=== PATIENT | female | born 1985 | race Caucasian/White ===

== ENCOUNTER 2018-12-15 01:04 | Emergency (ER) | payer OTHER, SELFPAY ==
[2018-12-15 01:05] VITALS: BP 164/109; PULSE 120; RESP 18; TEMP 36.3; O2SAT 96; BMI 49.4
[2018-12-15] MEDS: OLANZapine ODT 10 MG TAB PO (01:38)
[2018-12-15 01:41] LABS: Pregnancy Test Urine Negative (Negative)
[2018-12-15 01:42] LABS: Appearance Urine UA CLEAR; Bilirubin Urine UA NEGATIVE (NEGATIVE); Color Urine UA YELLOW; Glucose Urine UA NEGATIVE (Negative); Ketones Urine UA NEGATIVE (NEGATIVE); Leukocyte Esterase Urine UA TRACE (NEGATIVE); Nitrite Urine UA NEGATIVE (Negative); Occult Blood Urine UA NEGATIVE (Negative); Protein Urine UA NEGATIVE (Negative); Urobilinogen Urine UA 0.2 E.U./dL (0.2); pH Urine UA 5.5 (4.5-8.0)
[2018-12-15 01:46] LABS: RBC Urine None Seen (0-5/HPF); Urine Amphetamines Negative (Negative); Urine Barbiturates Negative (Negative); Urine Benzodiazepines Positive (Negative); Urine Cocaine Negative (Negative); Urine MDMA Negative (Negative); Urine Methadone Negative (Negative); Urine Methamphetamines Negative (Negative); Urine Morphine/Opi cutoff 2000 Negative (Negative); Urine Oxycodone Negative (Negative); Urine Phencyclidine Negative (Negative); Urine Tetrahydrocannabinol Negative (Negative); Urine Tricyclic Antidepressant Positive (Negative)
[2018-12-15 01:48] LABS: Bacteria Urine Moderate (10-30); Culture Indicated Urine Cult Not Indicated; Squamous Epithelial Cell Urine 5-10 /HPF (0-5/HPF); WBC Urine 1-5/HPF (0-5/HPF)
[2018-12-15 01:52] LABS: Add Manual Diff / Slide Review NO; Basophils Absolute Auto 100 /uL (0-100); Basophils Percent Auto 0.9 % (0-2); Eosinophils Absolute Auto 200 /uL (0-450); Eosinophils Percent Auto 2.6 % (2-4); Hematocrit 41.5 % (36-46); Hemoglobin 14.2 g/dL (12.0-16.0); Lymphocytes Absolute Auto 3100 /uL (1100-4500); Lymphocytes Percent Auto 39.9 % (25-40); Mean Corpuscular HGB Conc 34.3 % (30-36); Mean Corpuscular Hemoglobin 30.1 PG (26-34); Mean Corpuscular Volume 87.8 fL (80-100); Monocytes Absolute Auto 800 /uL (0-900); Neutrophils Absolute Auto 3700 /uL (1500-7000); Neutrophils Percent Auto 46.6 % (50-75); Platelet Count 341 X10^3/uL (150-400); Red Blood Cell Count 4.73 X10^6/uL (4.0-5.2); White Blood Cell Count 7.9 X10^3/uL (4.5-11.0)
--- NOTE | 2018-12-15 01:57 | ED.PSYCH ---
HPI - Psych General Chief Complaint: Psychiatric Symptoms Stated Complaint: Suicidal Ideation Time Seen by Provider: 12/15/18 01:05 Source: patient and police Mode of arrival: ambulatory Limitations: no limitations History of Present Illness HPI Narrative: 33-year-old female with extensive mental health history presents by [place] police for evaluation of homicidal and suicidal ideation. She was discharged earlier in the day after a 9 day stay at [facility] under voluntary circumstances. The patient has been admitted 9 times for psychiatric reasons. She frequently has voices which tell her she is worthless and she should hurt herself. Of larger concern to her is that the voices tell her to kill all of the teachers at a local elementary school because they train young students to track down patients like her. Her theory is that if she kills the teachers stable not be able to train students to seek her out. The patient denies any access to a firearm. She states that she would definitely hurt herself if she were allowed to go home. Her underlying diagnosis is severe major depression with psychosis. This evening the patient states she started having strong suicidal and homicidal thoughts and called the various help pot lines and was eventually routed to dispatch whom notified police and brought her here. complaint: suicidal ideation Onset (ago): day(s) Duration: constant History of same: Yes Relieving factors: none Exacerbating factors: none Associated psychiatric symptoms: suicidal ideation, homicidal ideation, auditory hallucinations and visual hallucinations Associated symptoms: denies other symptoms Treatments prior to arrival: none If self harm: admits thoughts of self harm Related Data Home Medications Medication Instructions Recorded Confirmed albuterol sulfate [Ventolin HFA] 2 puff INH PRN #0 01/14/12 12/03/18 montelukast [Singulair] 10 mg PO QDAY #0 01/14/12 12/03/18 EPINEPHRINE (#EPI EZ PEN) 1 mg IM PRN #0 09/11/12 12/03/18 amitriptyline 25 mg PO HS #0 02/26/17 12/03/18 naproxen sodium [Aleve] 220 mg PO PRN PRN #0 02/26/17 12/03/18 propranolol 40 mg PO TID #0 02/26/17 12/03/18 ranitidine HCl 150 mg PO BID #0 02/26/17 12/03/18 levothyroxine 112 mcg capsule 112 mcg PO BID cap 05/28/18 12/03/18 alprazolam 1 mg tablet 1 mg PO TID PRN tab 07/26/18 12/03/18 Previous Rx's Medication Instructions Recorded prazosin 5 mg capsule 15 mg PO HS 30 Days #90 cap 01/22/18 alprazolam ER 3 mg tablet,extended 3 mg PO DAILY #30 tab 09/27/18 release 24 hr duloxetine 60 mg capsule,delayed 120 mg PO Q DAY #60 cap 09/27/18 release haloperidol 10 mg tablet 10 mg PO .COMPLEX #90 tab 09/27/18 lisdexamfetamine 70 mg capsule 70 mg PO QAM #30 cap 11/03/18 Allergies Allergy/AdvReac Type Severity Reaction Status Date / Time Penicillins [PENICILLINS] Allergy Severe Severe Verified 12/15/18 01:48 Joint Pain venom-honey bee Allergy Severe Anahalaxis Verified 12/15/18 01:48 [BEE VENOM (HONEY BEE)] hydrocodone [HYDROCODONE] Allergy Unknown Verified 12/15/18 01:48 Sulfa (Sulfonamide AdvReac Intermediate N/V Verified 12/15/18 01:48 Antibiotics) [SULFA (SULFONAMIDE ANTIBIOTICS)] Review of Systems Constitutional Denies chills, Denies fever(s), Denies lethargy and Denies weakness Eyes Denies change in vision, Denies eye discharge, Denies irritation and Denies loss of vision ENT Ears, Nose, Mouth, and Throat: Denies change in voice, Denies neck pain and Denies sore throat Cardiovascular Denies chest pain, Denies irregular heart rhythm, Denies lightheadedness, Denies palpitations, Denies dyspnea, Denies dyspnea on exertion and Denies orthopnea Respiratory Denies cough, Denies dyspnea, Denies dyspnea on exertion and Denies wheezing Gastrointestinal Gastrointestinal: Denies abdominal pain, Denies change in bowel habits, Denies diarrhea, Denies nausea and Denies vomiting Genitourinary Denies hematuria, Denies flank pain, Denies urinary incontinence and Denies urinary urgency Musculoskeletal Denies neck pain Integumentary/Breasts Denies pruritus, Denies erythema, Denies rash and Denies wounds Neurologic Denies confusion, Denies loss of vision and Denies weakness Psychiatric Denies anxiety, Denies confusion, Denies depression, Reports homicidal ideation and Reports suicidal ideation Endocrine Denies palpitations Hematologic/Lymphatic Denies easy bruising Allergic/Immunologic Denies wheezing PFSH Surgical History Status post cholecystectomy Family History (Updated 03/12/15 @ 00:00 by Conversion Provider) Father Age: 67 FH: prostate cancer Grandfather Heart disease Hypertension Stroke Grandmother Heart disease Hypertension Stroke Grandfather Alzheimer disease Social History Smoking Status: Never smoker Family History Father Age: 67 FH: prostate cancer Grandfather Heart disease Hypertension Stroke Grandmother Heart disease Hypertension Stroke Grandfather Alzheimer disease Social History Smoking Status: Never smoker Exam Initial Vital Signs Initial Vital Signs: Vital Signs Temperature 97.3 F L 12/15/18 01:05 Pulse Rate 120 H 12/15/18 01:05 Respiratory Rate 18 12/15/18 01:05 Blood Pressure 164/109 H 12/15/18 01:05 Pulse Oximetry 96 12/15/18 01:05 Const General: cooperative, well developed, acute distress and disheveled Nutritional Appearance: obese Orientation: alert, awake, oriented x3 and not confused [facility] Head: normocephalic and atraumatic Ears: external ears normal Nose: external nose normal and No nasal discharge Face and sinus: no sinus tenderness and No dry mucous membranes Mouth: oral mucosae normal and moist mucous membranes Teeth and gingiva: dentition normal Throat: tonsils normal and uvula midline Eyes General: appearance normal, both eyes and all related structures Eyelids: eyelids normal Conjunctivae: conjunctivae normal Sclera: sclerae normal Pupils: PERRL EOM: EOM intact bilaterally Neck Neck: normal visual inspection, trachea midline, No lymphadenopathy, No midline deformity and No JVD Lymphatic: No lymphedema Chest Chest: normal inspection of the chest Resp Effort & Inspection: normal respiratory effort, able to speak in complete sentences, no respiratory distress and no use of accessory muscles Auscultation: clear to auscultation bilaterally, no rales, no rhonchi and no wheezes Cardio Rate: regular rate Rhythm: regular rhythm Heart Sounds: no click, no gallops, no murmurs and no rubs Pulses: normal peripheral pulses GI Inspection: non-distended Palpation: soft, no hepatosplenomegaly, No guarding, No pulsatile mass and No tender Auscultation: normal bowel sounds Back/Spine/Pelvis Back: No CVA tenderness Cervical Spine: cervical ROM normal and No pain with cervical ROM Thoracic/Lumbar Spine: thoracic and lumbar spine normal to inspection Skin General: no rashes or lesions noted, No jaundice and No petechiae Neuro General: alert, oriented x3, gait normal and no focal motor deficits Speech: speech normal Extrem General: full ROM, no clubbing, cyanosis or edema, no pedal edema and no calf tenderness Psych Appearance: disheveled Mental Status: mental status grossly normal Speech and Movement: agitated Mood: paranoid Attitude: cooperative Thought Content: normal, hallucinations and suicidality Judgment: judgment good Course Orders Ordered: ED Orders 12/15/18 01:15 Test Urine Stat Urinalysis Sreen (Dip Only) Stat Urine Drug Screen, Rapid Stat Urine Microscopic Stat 12/15/18 01:37 Complete Blood Count AUTO DIFF Stat Comprehensive Metabolic Panel Stat Ethanol (ETOH) Stat Thyroid Stimulating Hormone Stat Discontinued Medications Olanzapine (Zyprexa Zydis) 10 mg PO NOW ONE Stop: 12/15/18 01:28 Last Admin: 12/15/18 01:38 Dose: 10 mg Reevaluation(s) Reevaluation #1: patient resting comfortably, willingly accepted Zyprexa 10 mg ODT call to [facility]. They currently do have a female bed, but need items faxed upon completion Dr. Barrientos (Psych at [facility]) is happy to accept patient. Vital Signs - 8 hr 12/15/18 01:05 12/15/18 02:17 12/15/18 04:10 Temperature 97.3 F L 98.4 F Pulse Rate 120 H 103 H 97 H Respiratory Rate 18 16 16 Blood Pressure 164/109 H Blood Pressure [Right Arm] 148/103 H 139/98 H Pulse Oximetry 96 98 MDM - Psych Lab Data Result diagrams: 12/15/18 01:37 12/15/18 01:37 Lab Results 12/15/18 12/15/18 12/15/18 Range/Units 01:15 01:15 01:15 WBC (4.5-11.0) X10^3/uL RBC (4.0-5.2) X10^6/uL Hgb (12.0-16.0) g/dL Hct (36-46) % MCV (80-100) fL MCH (26-34) PG MCHC (30-36) % RDW (11.6-14.8) % Plt Count (150-400) X10^3/uL Neut % (Auto) (50-75) % Lymph % (Auto) (25-40) % Mcclain % (Auto) (3-14) % Eos % (Auto) (2-4) % Baso % (Auto) (0-2) % Neut # (Auto) (6583-1182) /uL Lymph # (Auto) (8282-8953) /uL Mcclain # (Auto) (0-900) /uL Eos # (Auto) (0-450) /uL Baso # (Auto) (0-100) /uL Sodium (137-145) mmol/L Potassium (3.4-5.1) mmol/L Chloride (98-107) mmol/L Carbon Dioxide (22-32) mmol/L BUN (7-17) mg/dL Creatinine (0.52-1.04) mg/dL Estimated GFR (>60) mL/min BUN/Creatinine Ratio (6-22) Glucose (70-100) mg/dL Calcium (8.4-10.2) mg/dL Total Bilirubin (0.2-1.3) mg/dL AST (14-36) IU/L ALT (9-52) IU/L Alkaline Phosphatase (38-126) U/L Total Protein (6.3-8.2) g/dL Albumin (3.5-5.0) g/dL Globulin (1.7-4.1) g/dL Albumin/Globulin Ratio (1.0-2.8) TSH (0.47-4.68) uIU/mL Urine Color Yellow Urine Appearance Clear Urine pH 5.5 (4.5-8.0) Ur Specific [place] 1.010 (1.000-1.035) Urine Protein Negative (Negative) Urine Glucose (UA) Negative (Negative) g/dL Urine Ketones Negative (NEGATIVE) Urine Occult Blood Negative (Negative) Urine Nitrate Negative (Negative) Urine Bilirubin Negative (NEGATIVE) Urine Urobilinogen 0.2 (0.2) E.U./dL Ur Leukocyte Esterase Trace H (NEGATIVE) Urine RBC None seen (0-5/HPF) Urine WBC 1-5/hpf (0-5/HPF) Ur Squamous Epith Cells 5-10 /hpf H (0-5/HPF) Urine Bacteria Moderate (10-30) H (None) Ur Culture Indicated? Cult not indicated Urine Test Negative (Negative) Urine Opiates Screen Negative (Negative) Ur Oxycodone Screen Negative (Negative) Urine Methadone Screen Negative (Negative) Ur Barbiturates Screen Negative (Negative) U Tricyclic Antidepress Positive H (Negative) Ur Phencyclidine Scrn Negative (Negative) Ur Amphetamines Screen Negative (Negative) U Methamphetamines Scrn Negative (Negative) Ur MDMA Scrn (Ecstasy) Negative (Negative) U Benzodiazepines Scrn Positive H (Negative) Urine Cocaine Screen Negative (Negative) U Marijuana (THC) Screen Negative (Negative) Ethyl Alcohol mg/dL 12/15/18 12/15/18 12/15/18 Range/Units 01:37 01:37 01:37 WBC 7.9 (4.5-11.0) X10^3/uL RBC 4.73 (4.0-5.2) X10^6/uL Hgb 14.2 (12.0-16.0) g/dL Hct 41.5 (36-46) % MCV 87.8 (80-100) fL MCH 30.1 (26-34) PG MCHC 34.3 (30-36) % RDW 14.0 (11.6-14.8) % Plt Count 341 (150-400) X10^3/uL Neut % (Auto) 46.6 L (50-75) % Lymph % (Auto) 39.9 (25-40) % [place]clain % (Auto) 10.0 (3-14) % Eos % (Auto) 2.6 (2-4) % Baso % (Auto) 0.9 (0-2) % Neut # (Auto) 3700 (3559-3195) /uL Lymph # (Auto) 3100 (3414-4953) /uL Mcclain # (Auto) 800 (0-900) /uL Eos # (Auto) 200 (0-450) /uL Baso # (Auto) 100 (0-100) /uL Sodium 138 (137-145) mmol/L Potassium 4.1 (3.4-5.1) mmol/L Chloride 98 (98-107) mmol/L Carbon Dioxide 26 (22-32) mmol/L BUN 15 (7-17) mg/dL Creatinine 1.20 H (0.52-1.04) mg/dL Estimated GFR 51.1 L (>60) mL/min BUN/Creatinine Ratio 12.5 (6-22) Glucose 125 H (70-100) mg/dL Calcium 9.6 (8.4-10.2) mg/dL Total Bilirubin 0.3 (0.2-1.3) mg/dL AST 34 (14-36) IU/L ALT 41 (9-52) IU/L Alkaline Phosphatase 74 (38-126) U/L Total Protein 7.7 (6.3-8.2) g/dL Albumin 4.8 (3.5-5.0) g/dL Globulin 2.9 (1.7-4.1) g/dL Albumin/Globulin Ratio 1.7 (1.0-2.8) TSH 5.80 H (0.47-4.68) uIU/mL Urine Color Urine Appearance Urine pH (4.5-8.0) Ur Specific [place] (1.000-1.035) Urine Protein (Negative) Urine Glucose (UA) (Negative) g/dL Urine Ketones (NEGATIVE) Urine Occult Blood (Negative) Urine Nitrate (Negative) Urine Bilirubin (NEGATIVE) Urine Urobilinogen (0.2) E.U./dL Ur Leukocyte Esterase (NEGATIVE) Urine RBC (0-5/HPF) Urine WBC (0-5/HPF) Ur Squamous Epith Cells (0-5/HPF) Urine Bacteria (None) Ur Culture Indicated? Urine Test (Negative) Urine Opiates Screen (Negative) Ur Oxycodone Screen (Negative) Urine Methadone Screen (Negative) Ur Barbiturates Screen (Negative) U Tricyclic Antidepress (Negative) Ur Phencyclidine Scrn (Negative) Ur Amphetamines Screen (Negative) U Methamphetamines Scrn (Negative) Ur MDMA Scrn (Ecstasy) (Negative) U Benzodiazepines Scrn (Negative) Urine Cocaine Screen (Negative) U Marijuana (THC) Screen (Negative) Ethyl Alcohol < 10 mg/dL MDM Narrative Medical decision making narrative: A 33-year-old psychiatric patient presents by police with auditory and visual hallucinations demanding homicidal actions. Patient willingly we will receive help. Additionally, she states that she will hurt herself if let go, though she has no plan. She is medically cleared, patient clearly needs admission into a psychiatric facility for stabilization of her condition Discharge Plan Departure Patient Disposition: Xfer Psychiatric Hosp Clinical Impression: Acute psychosis, Suicidal ideation, Homicidal ideation Discharge Date/Time: 12/15/18 04:16 Interventions: ED Discharge Assessment Last Done: 12/15/18 04:12 Referrals: Beatrice Paz MD [Primary Care Provider] -
[2018-12-15 01:59] LABS: Alanine Aminotransferase 41 IU/L (9-52); Albumin 4.8 g/dL (3.5-5.0); Albumin Globulin Ratio 1.7 (1.0-2.8); Alkaline Phosphatase 74 U/L (38-126); Aspartate Aminotransferase 34 IU/L (14-36); BUN Creatinine Ratio 12.5 (6-22); Bilirubin Total 0.3 mg/dL (0.2-1.3); Blood Urea Nitrogen 15 mg/dL (7-17); Calcium 9.6 mg/dL (8.4-10.2); Carbon Dioxide 26 mmol/L (22-32); Chloride 98 mmol/L (98-107); Estimated Glomerular Filt Rate 51.1 mL/min (>60); Ethanol (ETOH) < 10 mg/dL; Globulin 2.9 g/dL (1.7-4.1); Glucose 125 mg/dL (70-100); HEMOLYSIS < 15 (0-50); Potassium 4.1 mmol/L (3.4-5.1); Sodium 138 mmol/L (137-145); Total Protein 7.7 g/dL (6.3-8.2)
--- NOTE | 2018-12-15 02:08 | ED_ITS ---
HPI - Psych General Chief Complaint: Psychiatric Symptoms Stated Complaint: Suicidal Ideation Time Seen by Provider: 12/15/18 01:05 Source: patient and police Mode of arrival: ambulatory Limitations: no limitations History of Present Illness HPI Narrative: 33-year-old female with extensive mental health history presents by [place] police for evaluation of homicidal and suicidal ideation. She was discharged earlier in the day after a 9 day stay at [facility] under voluntary circumstances. The patient has been admitted 9 times for psychiatric reasons. She frequently has voices which tell her she is worthless and she should hurt herself. Of larger concern to her is that the voices tell her to kill all of the teachers at a local elementary school because they train young students to track down patients like her. Her theory is that if she kills the teachers stable not be able to train students to seek her out. The patient denies any access to a firearm. She states that she would definitely hurt herself if she were allowed to go home. Her underlying diagnosis is severe major depression with psychosis. This evening the patient states she started having strong suicidal and homicidal thoughts and called the various help pot lines and was eventually routed to dispatch whom notified police and brought her here. complaint: suicidal ideation Onset (ago): day(s) Duration: constant History of same: Yes Relieving factors: none Exacerbating factors: none Associated psychiatric symptoms: suicidal ideation, homicidal ideation, auditory hallucinations and visual hallucinations Associated symptoms: denies other symptoms Treatments prior to arrival: none If self harm: admits thoughts of self harm Related Data Home Medications Medication Instructions Recorded Confirmed albuterol sulfate [Ventolin HFA] 2 puff INH PRN #0 01/14/12 12/03/18 montelukast [Singulair] 10 mg PO QDAY #0 01/14/12 12/03/18 EPINEPHRINE (#EPI EZ PEN) 1 mg IM PRN #0 09/11/12 12/03/18 amitriptyline 25 mg PO HS #0 02/26/17 12/03/18 naproxen sodium [Aleve] 220 mg PO PRN PRN #0 02/26/17 12/03/18 propranolol 40 mg PO TID #0 02/26/17 12/03/18 ranitidine HCl 150 mg PO BID #0 02/26/17 12/03/18 levothyroxine 112 mcg capsule 112 mcg PO BID cap 05/28/18 12/03/18 alprazolam 1 mg tablet 1 mg PO TID PRN tab 07/26/18 12/03/18 Previous Rx's Medication Instructions Recorded prazosin 5 mg capsule 15 mg PO HS 30 Days #90 cap 01/22/18 alprazolam ER 3 mg tablet,extended 3 mg PO DAILY #30 tab 09/27/18 release 24 hr duloxetine 60 mg capsule,delayed 120 mg PO Q DAY #60 cap 09/27/18 release haloperidol 10 mg tablet 10 mg PO .COMPLEX #90 tab 09/27/18 lisdexamfetamine 70 mg capsule 70 mg PO QAM #30 cap 11/03/18 Allergies Allergy/AdvReac Type Severity Reaction Status Date / Time Penicillins [PENICILLINS] Allergy Severe Severe Verified 12/15/18 01:48 Joint Pain venom-honey bee Allergy Severe Anahalaxis Verified 12/15/18 01:48 [BEE VENOM (HONEY BEE)] hydrocodone [HYDROCODONE] Allergy Unknown Verified 12/15/18 01:48 Sulfa (Sulfonamide AdvReac Intermediate N/V Verified 12/15/18 01:48 Antibiotics) [SULFA (SULFONAMIDE ANTIBIOTICS)] Review of Systems Constitutional Denies chills, Denies fever(s), Denies lethargy and Denies weakness Eyes Denies change in vision, Denies eye discharge, Denies irritation and Denies loss of vision ENT Ears, Nose, Mouth, and Throat: Denies change in voice, Denies neck pain and Denies sore throat Cardiovascular Denies chest pain, Denies irregular heart rhythm, Denies lightheadedness, Denies palpitations, Denies dyspnea, Denies dyspnea on exertion and Denies orthopnea Respiratory Denies cough, Denies dyspnea, Denies dyspnea on exertion and Denies wheezing Gastrointestinal Gastrointestinal: Denies abdominal pain, Denies change in bowel habits, Denies diarrhea, Denies nausea and Denies vomiting Genitourinary Denies hematuria, Denies flank pain, Denies urinary incontinence and Denies urinary urgency Musculoskeletal Denies neck pain Integumentary/Breasts Denies pruritus, Denies erythema, Denies rash and Denies wounds Neurologic Denies confusion, Denies loss of vision and Denies weakness Psychiatric Denies anxiety, Denies confusion, Denies depression, Reports homicidal ideation and Reports suicidal ideation Endocrine Denies palpitations Hematologic/Lymphatic Denies easy bruising Allergic/Immunologic Denies wheezing PFSH Surgical History Status post cholecystectomy Family History (Updated 03/12/15 @ 00:00 by Conversion Provider) Father Age: 67 FH: prostate cancer Grandfather Heart disease Hypertension Stroke Grandmother Heart disease Hypertension Stroke Grandfather Alzheimer disease Social History Smoking Status: Never smoker Family History Father Age: 67 FH: prostate cancer Grandfather Heart disease Hypertension Stroke Grandmother Heart disease Hypertension Stroke Grandfather Alzheimer disease Social History Smoking Status: Never smoker Exam Initial Vital Signs Initial Vital Signs: Vital Signs Temperature 97.3 F L 12/15/18 01:05 Pulse Rate 120 H 12/15/18 01:05 Respiratory Rate 18 12/15/18 01:05 Blood Pressure 164/109 H 12/15/18 01:05 Pulse Oximetry 96 12/15/18 01:05 Const General: cooperative, well developed, acute distress and disheveled Nutritional Appearance: obese Orientation: alert, awake, oriented x3 and not confused [facility] Head: normocephalic and atraumatic Ears: external ears normal Nose: external nose normal and No nasal discharge Face and sinus: no sinus tenderness and No dry mucous membranes Mouth: oral mucosae normal and moist mucous membranes Teeth and gingiva: dentition normal Throat: tonsils normal and uvula midline Eyes General: appearance normal, both eyes and all related structures Eyelids: eyelids normal Conjunctivae: conjunctivae normal Sclera: sclerae normal Pupils: PERRL EOM: EOM intact bilaterally Neck Neck: normal visual inspection, trachea midline, No lymphadenopathy, No midline deformity and No JVD Lymphatic: No lymphedema Chest Chest: normal inspection of the chest Resp Effort & Inspection: normal respiratory effort, able to speak in complete sentences, no respiratory distress and no use of accessory muscles Auscultation: clear to auscultation bilaterally, no rales, no rhonchi and no wh eezes Cardio Rate: regular rate Rhythm: regular rhythm Heart Sounds: no click, no gallops, no murmurs and no rubs Pulses: normal peripheral pulses GI Inspection: non-distended Palpation: soft, no hepatosplenomegaly, No guarding, No pulsatile mass and No tender Auscultation: normal bowel sounds Back/Spine/Pelvis Back: No CVA tenderness Cervical Spine: cervical ROM normal and No pain with cervical ROM Thoracic/Lumbar Spine: thoracic and lumbar spine normal to inspection Skin General: no rashes or lesions noted, No jaundice and No petechiae Neuro General: alert, oriented x3, gait normal and no focal motor deficits Speech: speech normal Extrem General: full ROM, no clubbing, cyanosis or edema, no pedal edema and no calf tenderness Psych Appearance: disheveled Mental Status: mental status grossly normal Speech and Movement: agitated Mood: paranoid Attitude: cooperative Thought Content: normal, hallucinations and suicidality Judgment: judgment good Course Orders Ordered: ED Orders 12/15/18 01:15 Test Urine Stat Urinalysis Sreen (Dip Only) Stat Urine Drug Screen, Rapid Stat Urine Microscopic Stat 12/15/18 01:37 Complete Blood Count AUTO DIFF Stat Comprehensive Metabolic Panel Stat Ethanol (ETOH) Stat Thyroid Stimulating Hormone Stat Discontinued Medications Olanzapine (Zyprexa Zydis) 10 mg PO NOW ONE Stop: 12/15/18 01:28 Last Admin: 12/15/18 01:38 Dose: 10 mg Reevaluation(s) Reevaluation #1: patient resting comfortably, willingly accepted Zyprexa 10 mg ODT call to [facility]. They currently do have a female bed, but need items faxed upon completion Dr. Barrientos (Psych at [facility]) is happy to accept patient. Vital Signs - 8 hr 12/15/18 01:05 12/15/18 02:17 12/15/18 04:10 Temperature 97.3 F L 98.4 F Pulse Rate 120 H 103 H 97 H Respiratory Rate 18 16 16 Blood Pressure 164/109 H Blood Pressure [Right Arm] 148/103 H 139/98 H Pulse Oximetry 96 98 MDM - Psych Lab Data Result diagrams: 12/15/18 01:37 12/15/18 01:37 Lab Results 12/15/18 12/15/18 12/15/18 Range/Units 01:15 01:15 01:15 WBC (4.5-11.0) X10^3/uL RBC (4.0-5.2) X10^6/uL Hgb (12.0-16.0) g/dL Hct (36-46) % MCV (80-100) fL MCH (26-34) PG MCHC (30-36) % RDW (11.6-14.8) % Plt Count (150-400) X10^3/uL Neut % (Auto) (50-75) % Lymph % (Auto) (25-40) % Steele % (Auto) (3-14) % Eos % (Auto) (2-4) % Baso % (Auto) (0-2) % Neut # (Auto) (0609-0857) /uL Lymph # (Auto) (4478-9953) /uL Steele # (Auto) (0-900) /uL Eos # (Auto) (0-450) /uL Baso # (Auto) (0-100) /uL Sodium (137-145) mmol/L Potassium (3.4-5.1) mmol/L Chloride (98-107) mmol/L Carbon Dioxide (22-32) mmol/L BUN (7-17) mg/dL Creatinine (0.52-1.04) mg/dL Estimated GFR (>60) mL/min BUN/Creatinine Ratio (6-22) Glucose (70-100) mg/dL Calcium (8.4-10.2) mg/dL Total Bilirubin (0.2-1.3) mg/dL AST (14-36) IU/L ALT (9-52) IU/L Alkaline Phosphatase (38-126) U/L Total Protein (6.3-8.2) g/dL Albumin (3.5-5.0) g/dL Globulin (1.7-4.1) g/dL Albumin/Globulin Ratio (1.0-2.8) TSH (0.47-4.68) uIU/mL Urine Color Yellow Urine Appearance Clear Urine pH 5.5 (4.5-8.0) Ur Specific Burden 1.010 (1.000-1.035) Urine Protein Negative (Negative) Urine Glucose (UA) Negative (Negative) g/dL Urine Ketones Negative (NEGATIVE) Urine Occult Blood Negative (Negative) Urine Nitrate Negative (Negative) Urine Bilirubin Negative (NEGATIVE) Urine Urobilinogen 0.2 (0.2) E.U./dL Ur Leukocyte Esterase Trace H (NEGATIVE) Urine RBC None seen (0-5/HPF) Urine WBC 1-5/hpf (0-5/HPF) Ur Squamous Epith Cells 5-10 /hpf H (0-5/HPF) Urine Bacteria Moderate (10-30) H (None) Ur Culture Indicated? Cult not indicated Urine Test Negative (Negative) Urine Opiates Screen Negative (Negative) Ur Oxycodone Screen Negative (Negative) Urine Methadone Screen Negative (Negative) Ur Barbiturates Screen Negative (Negative) U Tricyclic Antidepress Positive H (Negative) Ur Phencyclidine Scrn Negative (Negative) Ur Amphetamines Screen Negative (Negative) U Methamphetamines Scrn Negative (Negative) Ur MDMA Scrn (Ecstasy) Negative (Negative) U Benzodiazepines Scrn Positive H (Negative) Urine Cocaine Screen Negative (Negative) U Marijuana (THC) Screen Negative (Negative) Ethyl Alcohol mg/dL 12/15/18 12/15/18 12/15/18 Range/Units 01:37 01:37 01:37 WBC 7.9 (4.5-11.0) X10^3/uL RBC 4.73 (4.0-5.2) X10^6/uL Hgb 14.2 (12.0-16.0) g/dL Hct 41.5 (36-46) % MCV 87.8 (80-100) fL MCH 30.1 (26-34) PG MCHC 34.3 (30-36) % RDW 14.0 (11.6-14.8) % Plt Count 341 (150-400) X10^3/uL Neut % (Auto) 46.6 L (50-75) % Lymph % (Auto) 39.9 (25-40) % Steele % (Auto) 10.0 (3-14) % Eos % (Auto) 2.6 (2-4) % Baso % (Auto) 0.9 (0-2) % Neut # (Auto) 3700 (7121-1900) /uL Lymph # (Auto) 3100 (9548-3941) /uL Steele # (Auto) 800 (0-900) /uL Eos # (Auto) 200 (0-450) /uL Baso # (Auto) 100 (0-100) /uL Sodium 138 (137-145) mmol/L Potassium 4.1 (3.4-5.1) mmol/L Chloride 98 (98-107) mmol/L Carbon Dioxide 26 (22-32) mmol/L BUN 15 (7-17) mg/dL Creatinine 1.20 H (0.52-1.04) mg/dL Estimated GFR 51.1 L (>60) mL/min BUN/Creatinine Ratio 12.5 (6-22) Glucose 125 H (70-100) mg/dL Calcium 9.6 (8.4-10.2) mg/dL Total Bilirubin 0.3 (0.2-1.3) mg/dL AST 34 (14-36) IU/L ALT 41 (9-52) IU/L Alkaline Phosphatase 74 (38-126) U/L Total Protein 7.7 (6.3-8.2) g/dL Albumin 4.8 (3.5-5.0) g/dL Globulin 2.9 (1.7-4.1) g/dL Albumin/Globulin Ratio 1.7 (1.0-2.8) TSH 5.80 H (0.47-4.68) uIU/mL Urine Color Urine Appearance Urine pH (4.5-8.0) Ur Specific Burden (1.000-1.035) Urine Protein (Negative) Urine Glucose (UA) (Negative) g/dL Urine Ketones (NEGATIVE) Urine Occult Blood (Negative) Urine Nitrate (Negative) Urine Bilirubin (NEGATIVE) Urine Urobilinogen (0.2) E.U./dL Ur Leukocyte Esterase (NEGATIVE) Urine RBC (0-5/HPF) Urine WBC (0-5/HPF) Ur Squamous Epith Cells (0-5/HPF) Urine Bacteria (None) Ur Culture Indicated? Urine Test (Negative) Urine Opiates Screen (Negative) Ur Oxycodone Screen (Negative) Urine Methadone Screen (Negative) Ur Barbiturates Screen (Negative) U Tricyclic Antidepress (Negative) Ur Phencyclidine Scrn (Negative) Ur Amphetamines Screen (Negative) U Methamphetamines Scrn (Negative) Ur MDMA Scrn (Ecstasy) (Negative) U Benzodiazepines Scrn (Negative) Urine Cocaine Screen (Negative) U Marijuana (THC) Screen (Negative) Ethyl Alcohol < 10 mg/dL MDM Narrative Medical decision making narrative: A 33-year-old psychiatric patient presents by police with auditory and visual hallucinations demanding homicidal actions. Patient willingly we will receive help. Additionally, she states that she will hurt herself if let go, though she has no plan. She is medically cleared, patient clearly needs admission into a psychiatric facility for stabilization of her condition Discharge Plan Departure Patient Disposition: Xfer Psychiatric Hosp Clinical Impression: Acute psychosis, Suicidal ideation, Homicidal ideation Discharge Date/Time: 12/15/18 04:16 Interventions: ED Discharge Assessment Last Done: 12/15/18 04:12 Referrals: Beatrice Paz MD [Primary Care Provider] -
--- NOTE | 2018-12-15 02:13 | PC.NURSE ---
Pt using phone to call father to him an update. Pt remains polite and very cooperative.
[2018-12-15 02:17] VITALS: BP 148/103; PULSE 103; RESP 16; O2SAT 98
--- NOTE | 2018-12-15 03:02 | PC.NURSE ---
Pt has been accepted at [facility] by Dr. Barrientos. Pt is aware of acceptance. Krystle HODGSON, who is coordinating transfer spoke with Saira at [place] and received authorization.
[2018-12-15 04:10] VITALS: BP 139/98; PULSE 97; RESP 16; TEMP 36.9
== END 2018-12-15 04:16 ==
PROVIDERS: Emergency Provider Emergency Medicine; Family Provider Family Medicine; PCP Family Medicine
DX: R45.851 Suicidal ideations (principal); R45.850 Homicidal ideations; F23 Brief psychotic disorder
CPT/HCPCS: 36415; 80053; 80305; 80320; 81003; 81015; 81025; 84443; 85025; 99283; 99285

== ENCOUNTER → 2019-10-05 12:44 | Outpatient (CLI) | payer OTHER, SELFPAY ==
[2019-10-05 14:39] LABS: Campylobacter Not Detected (Not Detect); Clostridium difficile toxin AB Not Detected (Not Detect); Enteroaggregative E.coli Not Detected (Not Detect); Plesiomonsa shigelloides Not Detected (Not Detect); Salmonella Not Detected (Not Detect); Vibrio Not Detected (Not Detect); Vibrio cholerae Not Detected (Not Detect); Yersinia enterocolitica Not Detected (Not Detect)
[2019-10-05 14:40] LABS: Adenovirus F 40/41 Not Detected (Not Detect); Astrovirus Not Detected (Not Detect); Cryptosporidium Not Detected (Not Detect); Cyclospora cayetanensis Not Detected (Not Detect); Entamoeba histolytica Not Detected (Not Detect); Enteropathogenic E.coli Not Detected (Not Detect); Enterotoxigenic E.coli It/st Detected (Not Detect); Giardia lamblia Not Detected (Not Detect); Norovirus GI/GII Not Detected (Not Detect); Rotavirus A Not Detected (Not Detect); Sapovirus Not Detected (Not Detect); Shiga-like toxin-prod E.coli Not Detected (Not Detect); Shigella/Enteroinvasive E.coli Not Detected (Not Detect)
== END ==
PROVIDERS: Family Provider Family Medicine; PCP Family Medicine; Referring Provider Physician Assistant; Visit Provider Physician Assistant
DX: R19.7 Diarrhea, unspecified (principal)
CPT/HCPCS: 87507

== ENCOUNTER → 2021-11-20 13:10 | Outpatient (CLI) | payer OTHER, SELFPAY ==
[2021-11-20 15:51] LABS: Vitamin D 25 Hydroxy (D3) 29.2 ng/mL (30.0-100.0)
== END ==
PROVIDERS: Family Provider Family Medicine; PCP Family Medicine; Referring Provider Physician Assistant; Visit Provider Physician Assistant
DX: S92.35 Fracture of fifth metatarsal bone (principal); S92.355A Nondisplaced fracture of fifth metatarsal bone, left foot, initial encounter for closed fracture
CPT/HCPCS: 36415; 82306

== ENCOUNTER → 2022-02-27 06:49 | Outpatient (CLI) | payer OTHER, SELFPAY ==
[2022-02-27 07:34] LABS: Add Manual Diff / Slide Review NO; Basophils Absolute Auto 0 /uL (0-100); Basophils Percent Auto 0.5 % (0-2); Eosinophils Absolute Auto 100 /uL (0-450); Eosinophils Percent Auto 2.7 % (2-4); Hematocrit 37.7 % (36-46); Hemoglobin 12.6 g/dL (12.0-16.0); Lymphocytes Absolute Auto 1400 /uL (1100-4500); Lymphocytes Percent Auto 30.3 % (25-40); Mean Corpuscular HGB Conc 33.3 % (30-36); Mean Corpuscular Hemoglobin 29.3 PG (26-34); Monocytes Absolute Auto 400 /uL (0-900); Monocytes Percent Auto 7.6 % (3-14); Neutrophils Absolute Auto 2800 /uL (1500-7000); Neutrophils Percent Auto 58.9 % (50-75); Platelet Count 267 X10^3/uL (150-400); Red Blood Cell Count 4.28 X10^6/uL (4.0-5.2); Red Cell Distribution Width 13.5 % (11.6-14.8); White Blood Cell Count 4.8 X10^3/uL (4.5-11.0)
[2022-02-27 07:49] LABS: Alanine Aminotransferase 36 IU/L (<35); Albumin 4.7 g/dL (3.5-5.0); Albumin Globulin Ratio 1.8 (1.0-2.8); Alkaline Phosphatase 66 U/L (38-126); Aspartate Aminotransferase 40 IU/L (14-36); BUN Creatinine Ratio 14.1 (6-22); Bilirubin Total 0.5 mg/dL (0.2-1.3); Blood Urea Nitrogen 11 mg/dL (7-17); Calcium 9.4 mg/dL (8.4-10.2); Carbon Dioxide 27 mmol/L (22-32); Chloride 97 mmol/L (98-107); Estimated Glomerular Filt Rate > 60 mL/min (>60); Globulin 2.6 g/dL (1.7-4.1); Glucose 136 mg/dL (70-100); HEMOLYSIS < 15 (0-50); Potassium 4.7 mmol/L (3.4-5.1); Sodium 136 mmol/L (137-145); Total Protein 7.3 g/dL (6.3-8.2)
[2022-02-27 08:17] LABS: TSH w/ Reflex to FT4 1.13 uIU/mL (0.47-4.68)
[2022-02-27 12:03] LABS: Hemoglobin A1C% w Est Avg Glu 5.9 % (4.0-6.0)
== END ==
PROVIDERS: Family Provider Family Medicine; PCP Family Medicine; Referring Provider Psychiatry & Neurology Psychiatry; Visit Provider Psychiatry & Neurology Psychiatry
DX: Z51.81 Encounter for therapeutic drug level monitoring (principal); F33.3 Major depressive disorder, recurrent, severe with psychotic symptoms; R63.5 Abnormal weight gain
CPT/HCPCS: 36415; 80053; 83036; 84443; 85025

== ENCOUNTER → 2022-05-12 08:17 | Outpatient (CLI) | payer OTHER, SELFPAY | PROVIDERS: Family Provider Family Medicine; PCP Family Medicine; Referring Provider Family Medicine; Visit Provider Family Medicine | DX: T24.211A Burn of second degree of right thigh, initial encounter (principal) | CPT/HCPCS: 16020; 99204; 99213 ==

== ENCOUNTER → 2022-05-20 11:52 | Outpatient (CLI) | payer OTHER, SELFPAY ==
[2022-05-20 12:23] LABS: COVID19 -Nasal RAPID Negative (Negative)
== END ==
PROVIDERS: Family Provider Family Medicine; PCP Family Medicine; Referring Provider Orthopaedic Surgery Foot and Ankle Surgery; Visit Provider Orthopaedic Surgery Foot and Ankle Surgery
DX: Z20.822 Contact with and (suspected) exposure to COVID-19 (principal)
CPT/HCPCS: 87635; C9803

== ENCOUNTER 2022-05-22 10:58 | Day surgery (SDC) | payer OTHER, SELFPAY ==
[2022-05-15 13:00] VITALS: BMI 58.5
[2022-05-22 11:26] VITALS: BP 170/87; PULSE 102; RESP 16; TEMP 36.5; O2SAT 99; BMI 58.5
--- NOTE | 2022-05-22 12:03 | SUR.PREOP ---
Pt. arrived in pre-op C/O of nausea, lightheadedness and diaphoretic . blood sugar 117, Bp 170/98, pulse 109 . States she did not take her meds today. takes inderal 4 times a day. is on multiple meds as well. improved with IV fluids . Anethesia md dr. James notified.
--- NOTE | 2022-05-22 14:30 | SUR.PREOP ---
Updated patient with delay of surgeon V/U. No needs voiced at this time.
--- NOTE | 2022-05-22 16:01 | SUR.PREOP ---
Pt cancelled per Anethesia and I.V. d/c'd pt. given instructions to follow up with automobile travel [employer] counselor. see dr. Powell note
== END 2022-05-22 16:10 | disposition home or self-care (01) ==
LOC: OR 10:58
PROVIDERS: Family Provider Family Medicine; PCP Family Medicine; Referring Provider Orthopaedic Surgery Foot and Ankle Surgery; Visit Provider Orthopaedic Surgery Foot and Ankle Surgery

== ENCOUNTER → 2022-06-23 10:03 | Outpatient (CLI) | payer OTHER, SELFPAY | PROVIDERS: Family Provider Family Medicine; PCP Family Medicine; Referring Provider Family Medicine; Visit Provider Family Medicine | DX: E11.621 Type 2 diabetes mellitus with foot ulcer (principal); L97.512 Non-pressure chronic ulcer of other part of right foot with fat layer exposed; E11.42 Type 2 diabetes mellitus with diabetic polyneuropathy; L08.9 Local infection of the skin and subcutaneous tissue, unspecified; Z79.84 Long term (current) use of oral hypoglycemic drugs; Z68.43 Body mass index [BMI] 50.0-59.9, adult; E66.01 Morbid (severe) obesity due to excess calories | CPT/HCPCS: 11042; 87070; 87075; 87077; 87147; 87186; 87205; 99213; 99214 ==

== ENCOUNTER → 2022-06-30 13:58 | Outpatient (CLI) | payer OTHER, SELFPAY | PROVIDERS: Family Provider Family Medicine; PCP Family Medicine; Referring Provider Family Medicine; Visit Provider Family Medicine | DX: E11.621 Type 2 diabetes mellitus with foot ulcer (principal); L97.512 Non-pressure chronic ulcer of other part of right foot with fat layer exposed; E11.42 Type 2 diabetes mellitus with diabetic polyneuropathy; L08.9 Local infection of the skin and subcutaneous tissue, unspecified; B95.7 Other staphylococcus as the cause of diseases classified elsewhere | CPT/HCPCS: 11042; 99213 ==

== ENCOUNTER → 2022-07-07 12:51 | Outpatient (CLI) | payer OTHER, SELFPAY | PROVIDERS: Family Provider Family Medicine; PCP Family Medicine; Referring Provider Family Medicine; Visit Provider Family Medicine | DX: E11.621 Type 2 diabetes mellitus with foot ulcer (principal); L97.512 Non-pressure chronic ulcer of other part of right foot with fat layer exposed; E11.42 Type 2 diabetes mellitus with diabetic polyneuropathy; L08.9 Local infection of the skin and subcutaneous tissue, unspecified; R60.0 Localized edema; L53.9 Erythematous condition, unspecified; M79.674 Pain in right toe(s) | CPT/HCPCS: 11042; 87070; 87075; 87077; 87147; 87186; 87205; 99213 ==

== ENCOUNTER → 2022-07-14 13:29 | Outpatient (CLI) | payer OTHER, SELFPAY | PROVIDERS: Family Provider Family Medicine; PCP Family Medicine; Referring Provider Family Medicine; Visit Provider Family Medicine | DX: E11.621 Type 2 diabetes mellitus with foot ulcer (principal); L08.9 Local infection of the skin and subcutaneous tissue, unspecified; L97.512 Non-pressure chronic ulcer of other part of right foot with fat layer exposed; B95.7 Other staphylococcus as the cause of diseases classified elsewhere; E11.40 Type 2 diabetes mellitus with diabetic neuropathy, unspecified; R60.0 Localized edema | CPT/HCPCS: 11042; 73630; 87070; 87075; 87077; 87147; 87186; 87205; 99214 ==

== ENCOUNTER → 2022-07-14 14:10 | Outpatient (CLI) | payer OTHER, SELFPAY ==
--- NOTE | 2022-07-14 14:11 | DI.RAD.S_ITS ---
PROCEDURE: XR FOOT RT MIN 3V INDICATIONS: non-healing ulcer on right hallux TECHNIQUE: 3 views of the foot were acquired. COMPARISON: [facility], CR, FOOT 3V RIGHT, 02/26/2017, 20:13. [facility], CR, XR FOOT 3 VIEWS WEIGHT BEARING LEFT, 04/16/2022, 13:03. FINDINGS: Bones: No fractures or dislocations. No suspicious bony lesions. Soft tissues: No tibiotalar joint effusion. Achilles tendon appears normal. Soft tissue ulcer is noted adjacent to the distal 1st phalanx. IMPRESSION: Soft tissue ulcer. No underlying osseous abnormality. If concern persists, MRI or bone scan may be obtained as they are more sensitive for early changes of osteomyelitis. Dictated by: Katie Fuentes M.D. on 07/14/2022 at 17:22 Approved by: Katie Fuentes M.D. on 07/14/2022 at 17:23
== END ==
PROVIDERS: Family Provider Family Medicine; PCP Family Medicine; Referring Provider Family Medicine; Visit Provider Family Medicine
DX: E11.621 Type 2 diabetes mellitus with foot ulcer (principal); L08.9 Local infection of the skin and subcutaneous tissue, unspecified
CPT/HCPCS: 73630

== ENCOUNTER → 2022-07-21 12:52 | Outpatient (CLI) | payer OTHER, SELFPAY | PROVIDERS: Family Provider Family Medicine; PCP Family Medicine; Referring Provider Family Medicine; Visit Provider Family Medicine | DX: E11.621 Type 2 diabetes mellitus with foot ulcer (principal); L97.512 Non-pressure chronic ulcer of other part of right foot with fat layer exposed; E11.42 Type 2 diabetes mellitus with diabetic polyneuropathy; R60.0 Localized edema; M79.671 Pain in right foot | CPT/HCPCS: 11042 ==

== ENCOUNTER → 2022-07-29 13:56 | Outpatient (CLI) | payer OTHER, SELFPAY | PROVIDERS: Family Provider Family Medicine; PCP Family Medicine; Referring Provider Family Medicine; Visit Provider Surgery | DX: E11.621 Type 2 diabetes mellitus with foot ulcer (principal); L97.512 Non-pressure chronic ulcer of other part of right foot with fat layer exposed; E11.42 Type 2 diabetes mellitus with diabetic polyneuropathy; M79.671 Pain in right foot; R60.0 Localized edema | CPT/HCPCS: 97597; 99213 ==

== ENCOUNTER → 2022-08-07 14:59 | Outpatient (CLI) | payer OTHER, SELFPAY | PROVIDERS: Family Provider Family Medicine; PCP Family Medicine; Referring Provider Family Medicine; Visit Provider Surgery | DX: E11.621 Type 2 diabetes mellitus with foot ulcer (principal); L97.512 Non-pressure chronic ulcer of other part of right foot with fat layer exposed; E11.40 Type 2 diabetes mellitus with diabetic neuropathy, unspecified; R60.0 Localized edema; L84 Corns and callosities; M79.671 Pain in right foot; F33.3 Major depressive disorder, recurrent, severe with psychotic symptoms; F41.9 Anxiety disorder, unspecified; F90.2 Attention-deficit hyperactivity disorder, combined type; F51.5 Nightmare disorder | CPT/HCPCS: 11042; 99214 ==

== ENCOUNTER → 2022-08-14 14:37 | Outpatient (CLI) | payer OTHER, SELFPAY | PROVIDERS: Family Provider Family Medicine; PCP Family Medicine; Referring Provider Family Medicine; Visit Provider Surgery | DX: E11.621 Type 2 diabetes mellitus with foot ulcer (principal); L97.512 Non-pressure chronic ulcer of other part of right foot with fat layer exposed; E11.40 Type 2 diabetes mellitus with diabetic neuropathy, unspecified; R60.0 Localized edema; M79.671 Pain in right foot | CPT/HCPCS: 11042 ==

== ENCOUNTER → 2022-08-21 15:33 | Outpatient (CLI) | payer OTHER, SELFPAY | PROVIDERS: Family Provider Family Medicine; PCP Family Medicine; Referring Provider Family Medicine; Visit Provider Surgery | DX: E11.621 Type 2 diabetes mellitus with foot ulcer (principal); L97.512 Non-pressure chronic ulcer of other part of right foot with fat layer exposed; E11.40 Type 2 diabetes mellitus with diabetic neuropathy, unspecified | CPT/HCPCS: 97597 ==

== ENCOUNTER → 2022-08-28 14:51 | Outpatient (CLI) | payer OTHER, SELFPAY | PROVIDERS: Family Provider Family Medicine; PCP Family Medicine; Referring Provider Family Medicine; Visit Provider Surgery | DX: E11.621 Type 2 diabetes mellitus with foot ulcer (principal); L97.512 Non-pressure chronic ulcer of other part of right foot with fat layer exposed; E11.40 Type 2 diabetes mellitus with diabetic neuropathy, unspecified; L84 Corns and callosities; R60.0 Localized edema | CPT/HCPCS: 11055; 99212 ==

== ENCOUNTER → 2022-09-18 08:45 | Outpatient (CLI) | payer OTHER, SELFPAY | PROVIDERS: Family Provider Family Medicine; PCP Family Medicine; Referring Provider Family Medicine; Visit Provider Surgery | DX: E11.40 Type 2 diabetes mellitus with diabetic neuropathy, unspecified (principal); Z86.31 Personal history of diabetic foot ulcer | CPT/HCPCS: 99211; 99212 ==

== ENCOUNTER → 2022-11-14 08:58 | Outpatient (CLI) | payer OTHER, SELFPAY ==
--- NOTE | 2022-11-14 | DI.RAD.S_ITS ---
PROCEDURE: XR FOOT RT MIN 3V INDICATIONS: Non-pressure chronic ulcer of right heel and midfoot TECHNIQUE: 3 views of the foot were acquired. COMPARISON: [facility], CR, XR FOOT RT MIN 3V, 07/14/2022, 15:16. FINDINGS: Bones: No acute fractures or dislocations. Old avulsion injury involving dorsal aspect of distal talus is again seen. No definite bony erosive changes are seen. Well-defined plantar calcaneal enthesophyte is noted. No suspicious bony lesions. Soft tissues: Possible ulceration involving plantar aspect of midfoot is seen. No tibiotalar joint effusion. Achilles tendon appears normal. IMPRESSION: Possible shallow ulceration involving plantar aspect of midfoot. No radiographic evidence of osteomyelitis. No fracture or dislocation. Dictated by: Richard Calixto M.D. on 11/14/2022 at 9:11 Approved by: Richard Calixto M.D. on 11/14/2022 at 9:15
== END ==
PROVIDERS: Family Provider Family Medicine; PCP Family Medicine; Referring Provider Podiatrist; Visit Provider Podiatrist
DX: E11.621 Type 2 diabetes mellitus with foot ulcer (principal); L97.412 Non-pressure chronic ulcer of right heel and midfoot with fat layer exposed
CPT/HCPCS: 73630

== ENCOUNTER 2023-03-27 10:58 | Day surgery (SDC) | payer OTHER, SELFPAY ==
[2023-03-24 14:53] VITALS: BMI 62.1
[2023-03-27] VITALS (8 sets, daily range): BP systolic 114–142; BP diastolic 73–87; PULSE 76–98; RESP 13–21; TEMP 36.1–36.3; O2SAT 92–98; BMI 62.1
--- NOTE | 2023-03-27 | DI.RAD.S_ITS ---
PROCEDURE: XR ANKLE LT MIN 3V INDICATIONS: ORIF ANKLE TECHNIQUE: 3 spot fluoroscopic images of the left ankle/foot. COMPARISON: [facility] A[facility]on, XR FOOT 3 VIEWS WEIGHT BEARING LEFT, 03/18/2023, 14:59. FINDINGS: Bones: Postsurgical changes are seen from internal fixation of the previously seen 5th metatarsal fracture with improved alignment. No new osseous abnormality. Postsurgical changes partially imaged in the distal tibia and fibula. Calcaneal enthesopathy again noted. Soft tissues: Soft tissue edema is seen at the lateral midfoot. IMPRESSION: Status post internal fixation of the 5th metatarsal shaft fracture with improved alignment. Approved by: Neymar Bush M.D. on 03/27/2023 at 16:22
[2023-03-27] MEDS: LACTATED RINGERS 1,000 ML 42 ML IV (11:46)
--- NOTE | 2023-03-27 12:18 | PM.PREOP ---
Pre-operative Note Interval Note History & Physical reviewed/Exam performed by Physician: Yes Changes to H&P: No
[2023-03-27] MEDS: CLINDAMYCIN 900 MG/50 ML PIGGYBACK 50 MG IV (12:45)
--- NOTE | 2023-03-27 13:14 | SUR.OPER ---
Supine on padded OR bed, head on pillow, arms secured on padded arm boards at <90 degrees abduction, legs uncrossed, safety belt at thigh, tape over blanket over lower legs.
--- NOTE | 2023-03-27 14:37 | PM.OP.1 ---
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 Open reduction internal fixation 5th metatarsal nonunion, left CPT code 51650 2. Calcaneal bone graft to cpt 47967 modifier 59 for separate site Modifier 22 this procedure was performed with a modifier 22 due to morbid obesity BMI 61 and positional difficulties requiring additional positioning and accommodation.. Same procedure as scheduled: Yes Indications: Patient is a 37-year-old female with a left 5th metatarsal base nonunion. She has persistent pain and asymptomatic nonunion for fracture. She is indicated for open reduction internal fixation with bone grafting. The risks and benefits of the procedure have been discussed with the patient and given the opportunity to ask questions. The risks of surgery include but are not limited to infection, malunion, nonunion, persistence of pain, damage to nerves and blood vessels, posttraumatic arthritis, DVT, PE, cardiopulmonary complications and . The patient expressed a thorough understanding of the risks and benefits of surgery and has elected to proceed. Consent was signed in the office Surgeon: Rebeca Zheng Click Yes if Unassisted: Yes Anesthesia Type: General and Local Operative Notes Findings: Nonunion 5th metatarsal base fracture zone 2. Nonunion fibrous tissue removed with a rongeur. Bone edges were drilled and prepared. Autograft was harvested from the calcaneus and impacted into the nonunion site. Fracture was compressed and plated with a lateral hook plate Closure Type: primary Specimen(s): none sent Prosthetic devices, grafts, tissues, transplants, or devices: Montgomery 28---6 hole metatarsal plate, left 2.5 nonlocking and locking screws Applied: implant(s) (Montgomery 28) Estimated Blood Loss (mL): 10 Blood products transfused: none Tourniquet time (min): 51 Procedure in detail: Patient was seen in the preoperative area the surgery it was marked and informed consent confirmed. The patient was brought back to the operating room by the anesthesia team and positioned supine on operative table. A ipsilateral thigh bump was placed. A calf tourniquet was placed that was well padded. The lower extremities prepped and draped in standard sterile fashion. A formal time-out procedure was performed confirming the patient's side and site of surgery administration of appropriate preoperative antibiotic which was 900 mg of clindamycin due to a penicillin allergy. Attention was turned to the left foot the Esmarch was used and tourniquet elevated to 250 mm of mercury. Attention was turned to the left foot C-arm was brought in and the 5th metatarsal base fracture site were marked out on the skin as well as the site for the calcaneal bone graft harvest. Open reduction internal fixation left 5th metatarsal fracture: Lateral incision along the 5th metatarsal was taken down through the skin subcutaneous tissue. Careful dissection down to the level of the bone proceeded. The nonunion site was encountered and fibrous nonunion removed with a rongeur. A [place]view was introduced into the fracture site to mobilize it demonstrating the nonunion. There was a lateral and plantar gap. This was debrided. The bone edges were then irrigated and then drilled with a 3.5 drill to create fresh bleeding bone. After obtaining the bone graft this was then packed into the nonunion site and the template for the 6 hole 5th metatarsal plate was placed along the bone and pinned in place. The tines for the hook plate were drilled and then the template was removed. The real plate was placed and secured. The tines were impacted into the bone with a tamp and a cortical screw was placed in the oblong hole in compression mode distally that compressed the fracture and helped engaged the tines in the proximal fragment. Next additional nonlocking screw was placed in the proximal part of the plate to finish sucking this down to bone. Additional locking screws were placed proximally and distally. Remaining bone graft was packed around the nonunion site. The wound was irrigated tourniquet was released and the wound was closed in a layered fashion with 2-0 Vicryl 4-0 Monocryl and 3-0 nylon suture. Fluoroscopy was used throughout the procedure knee AP lateral and oblique planes confirming appropriate hardware placement screw length compression of the fracture nonunion site. Bone graft, donor, calcaneus: Separate incision was taken over the lateral calcaneus in the tuberosity. This was made under fluoroscopic guidance. Dissection was taken through the skin down to the bone. A 3 5 drill and 3 5 drill guide were introduced. Three 5 drill was used to pop through the lateral wall then was removed. The 3.5 drill guide was left and was impacted into the bone with a mallet. The drill guide was then removed and the drill itself used to place through the drill guide to remove the core of bone graft was obtained. The drill guide was then placed back into the hole at different angle and mallet it into the calcaneus to remove several more dowels of bone graft. Once adequate bone graft was obtained this was then placed into the nonunion site that was prepared at the 5th metatarsal. The bone graft donor site was then irrigated and closed with 3-0 nylon suture. A sterile dressing with Xeroform gauze and Webril and a splint were applied to the lower extremity. The patient was woken from anesthesia and taken to the recovery room in good condition there were no immediate complications from this procedure. All counts were correct. Complications: none Post-operative Condition: stable Disposition: PACU Plan for aftercare: Nonweightbearing or touchdown for balance left foot. Elevate above the heart level as much as possible. Maintain precautions 6 weeks. Follow up in 2 weeks for wound check and suture removal. Aspirin 325 b.i.d. for DVT prophylaxis
== END 2023-03-27 15:18 | disposition home or self-care (01) ==
PROVIDERS: Family Provider Family Medicine; PCP Family Medicine; Referring Provider Orthopaedic Surgery Foot and Ankle Surgery; Visit Provider Orthopaedic Surgery Foot and Ankle Surgery
PROC: (CPT 28485; principal; 2023-03-27 12:30)
DX: S92.355K Nondisplaced fracture of fifth metatarsal bone, left foot, subsequent encounter for fracture with nonunion (principal); E66.01 Morbid (severe) obesity due to excess calories; Z68.44 Body mass index [BMI] 60.0-69.9, adult; E11.9 Type 2 diabetes mellitus without complications; Z79.84 Long term (current) use of oral hypoglycemic drugs; J45.909 Unspecified asthma, uncomplicated; G47.30 Sleep apnea, unspecified
CPT/HCPCS: 20900; 28485; 73610; 76000; 82962; J1100; J2250; J2405; J2704; J3010

== ENCOUNTER → 2023-12-29 09:56 | Outpatient (CLI) | payer OTHER, SELFPAY ==
--- NOTE | 2023-12-29 09:58 | DI.CT.S_ITS ---
PROCEDURE: CT SINUS SCREEN WO CON INDICATIONS: Chronic pansinusitis TECHNIQUE: Noncontrast 3.0 mm axial images acquired from the frontal sinuses to the mid-sella, with coronal and sagittal reformats. For radiation dose reduction, the following was used: automated exposure control, adjustment of mA and/or kV according to patient size. COMPARISON: [facility], CT, CT BRAIN WO CON, 01/02/2017, 15:58. FINDINGS: Image quality: Excellent. Maxillary Sinuses: No bony remodeling or destruction. Sinuses are clear. Ethmoid Air Cells: No bony remodeling or destruction. Sinuses are clear. Sphenoid Sinuses: No bony remodeling or destruction. Sinuses are clear. Frontal Sinuses: No bony remodeling or destruction. Sinuses are clear. Ostiomeatal Complexes: Ostiomeatal complexes are patent, yet they are constitutionally narrowed. No Erlin cells. Miscellaneous: Visualized intra-orbital contents are normal. No osmany bullosa or paradoxical turbinate curvature. There is mild to moderate rightward nasal septal deviation. Incidental note is made of hyperostosis frontalis. This is not considered to be pathologic in a woman of this age. IMPRESSION: No significant active paranasal sinus disease. [id number] rightward nasal septal deviation. Patent, yet constitutionally narrowed, ostiomeatal complexes. Dictated by: Yury Jeffrey M.D. on 12/29/2023 at 10:23 Approved by: Yury Jeffrey M.D. on 12/29/2023 at 10:25
== END ==
PROVIDERS: Family Provider Family Medicine; PCP Family Medicine; Referring Provider Otolaryngology; Visit Provider Otolaryngology
DX: J32.4 Chronic pansinusitis (principal); R09.82 Postnasal drip; R51.9 Headache, unspecified; J34.89 Other specified disorders of nose and nasal sinuses; J34.2 Deviated nasal septum
CPT/HCPCS: 70486

== ENCOUNTER → 2024-05-25 11:39 | Outpatient (CLI) | payer OTHER, SELFPAY ==
--- NOTE | 2024-05-25 11:41 | DI.RAD.S_ITS ---
PROCEDURE: XR FOOT LT MIN 3V INDICATIONS: Pain in left foot TECHNIQUE: 3 views of the foot were acquired. COMPARISON: [facility], CR, XR FOOT 3 VIEWS WEIGHT BEARING LEFT, 08/25/2023, 8:18. [facility], CR, XR FOOT RT MIN 3V, 11/14/2022, 9:12. FINDINGS: Bones: 5th metatarsal, distal femur lateral malleolar fixation are present. Hardware is intact without hardware fracture or periprosthetic lucency to suggest loosening. Alignment is stable. There is a comminuted mildly displaced 4th metatarsal fracture with significant periosteal reaction. Soft tissues: No tibiotalar joint effusion. Achilles tendon appears normal. IMPRESSION: Comminuted mildly displaced fracture within the 4th metatarsal with significant periosteal reaction. Dictated by: Katie Fuentes M.D. on 05/26/2024 at 15:54 Approved by: Katie Fuentes M.D. on 05/26/2024 at 15:55
== END ==
LOC: RAD 11:40
PROVIDERS: Family Provider Family Medicine; PCP Family Medicine; Referring Provider Podiatrist Foot & Ankle Surgery; Visit Provider Podiatrist Foot & Ankle Surgery
DX: S92.342A Displaced fracture of fourth metatarsal bone, left foot, initial encounter for closed fracture (principal); M79.672 Pain in left foot
CPT/HCPCS: 73630